=== PATIENT | female | born 1995 | race African-American/Black ===

== ENCOUNTER 2017-03-19 18:26 | Emergency (ER) | payer OTHER ==
[2017-03-19 18:43] VITALS: RESP 16; TEMP 98.7
--- NOTE | 2017-03-19 19:32 | ED ---
Abdominal Pain HPI - General Chief Complaint: Abdominal Pain Stated Complaint: cramping LMP 01/03 Time Seen by Provider: 03/19/17 19:21 Source: patient, RN notes reviewed, old records reviewed Mode of arrival: ambulatory Limitations: no limitations - History of Present Illness Initial Comments: 21-year-old female presents the ED chief complaint of lower pelvic cramping. She reports that she found she was a few weeks ago. Her last menstrual cycle was January 03. She does not have any TELECOMMUNICATIONS MANAGER care at this point. She states that she previously saw Dr. Haile for previous pregnancies. This is a female. Denies any bleeding at this time. Denies any dysuria hematuria. She reports some mild nausea. She states that the pain is a constant cramping sensation is been worse over the 24 hours. Patient states that she's had pain over both sides and doesn't seem to be worse versus one or the other. Patient denies any vaginal discharge. - Related Data Previous Rx's Medication Instructions Recorded Ctv-Tasy-Yfmer Acid 1 cap PO DAILY #30 cap 03/19/17 [-U Capsule (formulary)] Allergies Allergy/AdvReac Type Severity Reaction Status Date / Time No Known Allergies Allergy Verified 03/19/17 19:32 Review of Systems ROS Statement: Those systems with pertinent positive or pertinent negative responses have been documented in the HPI. ROS Other: All systems not noted in ROS Statement are negative. Past Medical History Past Medical History: No Reported History Additional Past Medical History / Comment(s): miscarriage x 2 History of Any Multi-Drug Resistant Organisms: None Reported Past Surgical History: No Surgical Hx Reported Past Anesthesia/Blood Transfusion Reactions: No Reported Reaction Past Psychological History: No Psychological Hx Reported Smoking Status: Never smoker Past Alcohol Use History: None Reported Past Drug Use History: None Reported - Past Family History Mother Family Medical History: No Reported History General Exam - General Exam Comments Initial Comments: Pleasant 21-year-old female. No acute distress. Limitations: no limitations General appearance: alert, in no apparent distress Head exam: Present: atraumatic, normocephalic, normal inspection Eye exam: Present: normal appearance, PERRL, EOMI. Absent: scleral icterus, conjunctival injection, periorbital swelling ENT exam: Present: normal exam, mucous membranes moist Neck exam: Present: normal inspection. Absent: tenderness, meningismus, lymphadenopathy Respiratory exam: Present: normal lung sounds bilaterally Cardiovascular Exam: Present: regular rate, normal rhythm, normal heart sounds. Absent: systolic murmur, diastolic murmur, rubs, gallop, clicks GI/Abdominal exam: Present: soft, normal bowel sounds. Absent: distended, tenderness, guarding, rebound, rigid Extremities exam: Present: normal inspection, full ROM, normal capillary refill. Absent: tenderness, pedal edema, joint swelling, calf tenderness Back exam: Present: normal inspection Neurological exam: Present: alert, oriented X3, CN II-XII intact Psychiatric exam: Present: normal affect, normal mood Skin exam: Present: warm, dry, intact, normal color. Absent: rash Course Vital Signs 03/19/17 18:38 Temperature 98.7 F Pulse Rate 80 Respiratory 16 Rate Blood Pressure 102/58 O2 Sat by Pulse 99 Oximetry Medical Decision Making - Lab Data Result diagrams: 03/19/17 19:30 03/19/17 19:30 Lab Results 03/19/17 03/19/17 03/19/17 Range/Units 19:30 19:30 19:30 WBC 7.8 (3.8-10.6) k/uL RBC 3.82 (3.80-5.40) m/uL Hgb 11.3 L (11.4-16.0) gm/dL Hct 31.1 L (34.0-46.0) % MCV 81.4 (80.0-100.0) fL MCH 29.6 (25.0-35.0) pg MCHC 36.4 (31.0-37.0) g/dL RDW 13.2 (11.5-15.5) % Plt Count 221 (150-450) k/uL Neutrophils % 58 % Lymphocytes % 34 % Monocytes % 4 % Eosinophils % 2 % Basophils % 0 % Neutrophils # 4.5 (1.3-7.7) k/uL Lymphocytes # 2.6 (1.0-4.8) k/uL Monocytes # 0.3 (0-1.0) k/uL Eosinophils # 0.1 (0-0.7) k/uL Basophils # 0.0 (0-0.2) k/uL Sodium 137 (137-145) mmol/L Potassium 3.6 (3.5-5.1) mmol/L Chloride 105 (98-107) mmol/L Carbon Dioxide 20 L (22-30) mmol/L Anion Gap 12 mmol/L BUN 9 (7-17) mg/dL Creatinine 0.50 L (0.52-1.04) mg/dL Est GFR (MDRD) Af Amer >60 (>60 ml/min/1.73 sqM) Est GFR (MDRD) Non-Af >60 (>60 ml/min/1.73 sqM) Glucose 84 (74-99) mg/dL Calcium 9.3 (8.4-10.2) mg/dL Total Bilirubin 0.7 (0.2-1.3) mg/dL AST 17 (14-36) U/L ALT 17 (9-52) U/L Alkaline Phosphatase 51 (38-126) U/L Total Protein 7.5 (6.3-8.2) g/dL Albumin 4.1 (3.5-5.0) g/dL HCG, Quant 848239.0 mIU/mL Urine Color Urine Appearance (Clear) Urine pH (5.0-8.0) Ur Specific Ada (1.001-1.035) Urine Protein (Negative) Urine Glucose (UA) (Negative) Urine Ketones (Negative) Urine Blood (Negative) Urine Nitrite (Negative) Urine Bilirubin (Negative) Urine Urobilinogen (<2.0) mg/dL Ur Leukocyte Esterase (Negative) Urine RBC (0-5) /hpf Urine WBC (0-5) /hpf Ur Squamous Epith Cells (0-4) /hpf Amorphous Sediment (None) /hpf Urine Bacteria (None) /hpf Urine Mucus (None) /hpf Blood Type O Positive Blood Type Recheck No 03/19/17 Range/Units 19:30 WBC (3.8-10.6) k/uL RBC (3.80-5.40) m/uL Hgb (11.4-16.0) gm/dL Hct (34.0-46.0) % MCV (80.0-100.0) fL MCH (25.0-35.0) pg MCHC (31.0-37.0) g/dL RDW (11.5-15.5) % Plt Count (150-450) k/uL Neutrophils % % Lymphocytes % % Monocytes % % Eosinophils % % Basophils % % Neutrophils # (1.3-7.7) k/uL Lymphocytes # (1.0-4.8) k/uL Monocytes # (0-1.0) k/uL Eosinophils # (0-0.7) k/uL Basophils # (0-0.2) k/uL Sodium (137-145) mmol/L Potassium (3.5-5.1) mmol/L Chloride (98-107) mmol/L Carbon Dioxide (22-30) mmol/L Anion Gap mmol/L BUN (7-17) mg/dL Creatinine (0.52-1.04) mg/dL Est GFR (MDRD) Af Amer (>60 ml/min/1.73 sqM) Est GFR (MDRD) Non-Af (>60 ml/min/1.73 sqM) Glucose (74-99) mg/dL Calcium (8.4-10.2) mg/dL Total Bilirubin (0.2-1.3) mg/dL AST (14-36) U/L ALT (9-52) U/L Alkaline Phosphatase (38-126) U/L Total Protein (6.3-8.2) g/dL Albumin (3.5-5.0) g/dL HCG, Quant mIU/mL Urine Color Yellow Urine Appearance Cloudy H (Clear) Urine pH 6.5 (5.0-8.0) Ur Specific Ada 1.025 (1.001-1.035) Urine Protein Trace H (Negative) Urine Glucose (UA) Negative (Negative) Urine Ketones Negative (Negative) Urine Blood Negative (Negative) Urine Nitrite Negative (Negative) Urine Bilirubin Negative (Negative) Urine Urobilinogen 6.0 (<2.0) mg/dL Ur Leukocyte Esterase Small H (Negative) Urine RBC 1 (0-5) /hpf Urine WBC 3 (0-5) /hpf Ur Squamous Epith Cells 4 (0-4) /hpf Amorphous Sediment Rare H (None) /hpf Urine Bacteria Occasional H (None) /hpf Urine Mucus Few H (None) /hpf Blood Type Blood Type Recheck - Radiology Data Radiology results: report reviewed Single intrauterine gestation measuring 9 weeks and 1 day basis on crown-rump length. Cardiac activity measures 168 bpm. Estimated date of confinement is 10/21 based on current ultrasound. Disposition Clinical Impression: , Abdominal cramping Disposition: HOME SELF-CARE Condition: Good Instructions: (ED) Additional Instructions: Patient advised to take vitamins. Follow-up with her TELECOMMUNICATIONS MANAGER. Return to the emergency department if any alarming signs or symptoms occur. Prescriptions: Eqc-Buht-Uneci Acid [-U Capsule (formulary)] 1 cap PO DAILY # 30 cap Referrals: Maylin Barrientos MD [STAFF PHYSICIAN] - 1-2 days Mel Haile DO [Doctor of Osteopathic Medicine] - 1-2 days Time of Disposition: 20:44
[2017-03-19 19:46] LABS: Basophils % (A) 0 %; CH 29.2; Eosinophils # (A) 0.1 k/uL (0-0.7); Eosinophils % (A) 2 %; HCT 31.1 % (34.0-46.0); HDW 2.43; HGB 11.3 gm/dL (11.4-16.0); Luc # (Auto) 0.12; Luc % (Auto) 2; Lymphocytes # (A) 2.6 k/uL (1.0-4.8); Lymphocytes % (A) 34 %; MCH 29.6 pg (25.0-35.0); MCHC 36.4 g/dL (31.0-37.0); MCV 81.4 fL (80.0-100.0); Mean Platelet Volume 7.5; Monocytes # (A) 0.3 k/uL (0-1.0); Monocytes % (A) 4 %; Neutrophils # (A) 4.5 k/uL (1.3-7.7); Neutrophils % (A) 58 %; RBC 3.82 m/uL (3.80-5.40); RDW 13.2 % (11.5-15.5); WBC 7.8 k/uL (3.8-10.6); WBC (Perox) 8.01
[2017-03-19 19:50] LABS: Amorphous Sediment,Urine Rare /hpf; Appearance,Urine Cloudy (Clear); Bacteria,Urine Occasional /hpf; Bilirubin,Urine Negative (Negative); Glucose,Urine (UA) Negative (Negative); Ketones,Urine Negative (Negative); Leukocyte Esterase,Urine Small (Negative); Mucus,Urine Few /hpf; Nitrite,Urine Negative (Negative); PH, Urine 6.5 (5.0-8.0); Particle Count 7912; Protein,Urine Trace (Negative); RBC,Urine 1 /hpf (0-5); Specific Gravity,Urine 1.025 (1.001-1.035); Squamous Epithelial Cell,Urine 4 /hpf (0-4); UA Billing (MACRO vs. MICRO) MICRO; WBC,Urine 3 /hpf (0-5)
[2017-03-19 19:56] LABS: ALT 17 U/L (9-52); AST 17 U/L (14-36); Alkaline Phosphatase 51 U/L (38-126); Anion Gap 12 mmol/L; Blood Urea Nitrogen 9 mg/dL (7-17); Calcium 9.3 mg/dL (8.4-10.2); Carbon Dioxide 20 mmol/L (22-30); Chloride 105 mmol/L (98-107); Glucose 84 mg/dL (74-99); Non-African American GFR(MDRD) >60 (>60 ml/min/1.73 sqM); Potassium 3.6 mmol/L (3.5-5.1); Sodium 137 mmol/L (137-145); Total Bilirubin 0.7 mg/dL (0.2-1.3); Total Protein 7.5 g/dL (6.3-8.2)
--- NOTE | 2017-03-19 20:37 | US ---
EXAMINATION TYPE: US OB <= 14 wk fetus DATE OF EXAM: 03/19/2017 COMPARISON: NONE CLINICAL HISTORY: pain/cramping for 2 days. Pt concerned because of previous miscarriage. EXAM PERFORMED: Transabdominal (TA) EXAM MEASUREMENTS: GESTATIONAL AGE / DATING Physician Established: Not established yet Dates by LMP: (9 weeks/1 day) EDC: 10/21/2017 Dates by First Scan: Current scan is first scan Dates by Current Scan for: (9 weeks/1 day) EDC: 10/21/2017 MATERNAL ANATOMY Uterus: 10.5 x 6.1 x 7.6 cm; appears wnl Right Ovary: 3.5 x 2.1 x 2.2 cm; appears to have hypoechoic lesion with peripheral flow measuring 2.4 x 1.3 x 1.4 cm ?corpus luteum versus other etiology Left Ovary: 3.1 x 1.3 x 1.7 cm; appears wnl Post CDS / Adnexa: appears wnl Presence of free fluid: no Presence of corpus luteal cyst: ? Rt ovary measuring 2.4 x 1.3 x 1.4 cm Presence of subchorionic bleed: no GESTATION / SURVEY CRL: 2.5 cm (9 weeks/1 day) Yolk Sac (normal less than 6mm): 0.3 cm Heart Rate: 168 bpm Rhythm: Normal IUP: Viable IUP Date of LMP: 01/14/2017 Beta HcG (if available): > [id number] IMPRESSION: Single intrauterine gestation estimated at 9 weeks 1 day gestation based on the crown-rump length. Ca rdiac activity measures 168 bpm. Estimated date of confinement is 10/21/2017 based on current ultrasoun d measurements.
[2017-03-19 21:50] VITALS: BP 111/65; PULSE 70
== END 2017-03-19 21:57 | disposition home or self-care (01) ==
LOC: EC 18:26
DX: O99.89 Other specified diseases and conditions complicating pregnancy, childbirth and the puerperium (principal); R10.2 Pelvic and perineal pain; R11.0 Nausea; Z3A.09 9 weeks gestation of pregnancy
CPT/HCPCS: 36415; 76801; 80053; 81001; 84702; 85025; 86900; 86901; 87070; 87086; 87205; 87491; 87591; 87808; 99284

== ENCOUNTER → 2017-04-15 | Outpatient (CLI) | payer OTHER ==
[2017-04-15 15:14] LABS: CH 29.5; CHCM 35.2; HCT 32.4 % (34.0-46.0); HDW 2.45; HGB 11.2 gm/dL (11.4-16.0); MCHC 34.6 g/dL (31.0-37.0); MCV 83.9 fL (80.0-100.0); Mean Platelet Volume 8.4; RBC 3.86 m/uL (3.80-5.40); RDW 13.5 % (11.5-15.5); WBC 8.1 k/uL (3.8-10.6)
[2017-04-15 15:21] LABS: Glucose 84 mg/dL (74-99); Non-African American GFR(MDRD) >60 (>60 ml/min/1.73 sqM)
[2017-04-15 15:52] LABS: Hepatitis B Surface Ag Index 0.05
[2017-04-15 19:29] LABS: Treponemal Ab Non-Reactive (Non-Reactive)
== END | disposition home or self-care (01) ==
LOC: LABWHC1 14:52
PROVIDERS: ATTEND Obstetrics & Gynecology
DX: Z34.81 Encounter for supervision of other normal pregnancy, first trimester (principal); R53.83 Other fatigue
CPT/HCPCS: 36415; 82565; 82947; 85027; 86762; 86780; 86850; 86900; 86901; 87340; 87390